=== PATIENT | male | born 1995 | race American Indian/Alaskan Native ===

== ENCOUNTER 2018-03-23 20:05 | Emergency (ER) | payer SELFPAY ==
[2018-03-23 20:14] VITALS: RESP 16; TEMP 98.8
--- NOTE | 2018-03-23 20:21 | ED PDOC ---
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 Patient reports he had unprotected sex with a number of females last week. Patient denies any fever, chills, abdominal pain, constipation, emesis, hematuria, dysuria, penile discharge, penile lesions, or any other complaints at this time. No PMD Past Medical History - Provider Review Nursing Documentation Reviewed: Yes - Infectious Disease Hx of Infectious Diseases: None - Cardiac Hx Cardiac Disorders: No - Pulmonary Hx Respiratory Disorders: No - Neurological Hx Neurological Disorder: No - HEENT Hx HEENT Disorder: No - Renal Hx Renal Disorder: No - Endocrine/Metabolic Hx Endocrine Disorders: No - Hematological/Oncological Hx Blood Disorders: No - Integumentary Hx Dermatological Disorder: No - Musculoskeletal/Rheumatological Hx Musculoskeletal Disorders: No - Gastrointestinal Hx Gastrointestinal Disorders: No - Genitourinary/Gynecological Hx Genitourinary Disorders: No - Psychiatric Hx Psychophysiologic Disorder: No Hx Substance Use: No Family/Social History - Physician Review Nursing Documentation Reviewed: Yes Family/Social History: No Known Family HX Smoking Status: Never Smoked Hx Alcohol Use: No Hx Substance Use: No Allergies/Home Meds Allergies/Adverse Reactions: Allergies No Known Allergies Allergy (Verified 03/23/18 20:12) Home Medications: Home Meds Medication Instructions Recorded Confirmed RX: No Known Home Med 03/23/18 03/23/18 Review of Systems - Physician Review All systems were reviewed & negative as marked: Yes - Review of Systems Constitutional: absent: Fevers, Night Sweats Gastrointestinal: absent: Abdominal Pain, Constipation, Vomiting Genitourinary Male: absent: Dysuria, Hematuria, Other (no penile discharge/lesions) Physical Exam Vital Signs Reviewed: Yes Vital Signs Temp Pulse Resp BP Pulse Ox 03/23/18 20:12 98.8 F 68 16 126/72 97 Temperature: Afebrile Blood Pressure: Normal Pulse: Regular Respiratory Rate: Normal Appearance: Positive for: Well-Appearing, Non-Toxic, Comfortable Pain Distress: None Mental Status: Positive for: Alert and Oriented X 3 - Systems Exam Head: Present: Atraumatic, Normocephalic Pupils: Present: PERRL Extroacular Muscles: Present: EOMI Conjunctiva: Present: Normal Mouth: Present: Moist Mucous Membranes Neck: Present: Normal Range of Motion Respiratory/Chest: Present: Clear to Auscultation, Good Air Exchange. No: Respiratory Distress, Accessory Muscle Use Cardiovascular: Present: Regular Rate and Rhythm, Normal S1, S2. No: Murmurs Abdomen: No: Tenderness, Distention, Peritoneal Signs Back: Present: Normal Inspection Upper Extremity: Present: Normal Inspection. No: Cyanosis, Edema Lower Extremity: Present: Normal Inspection. No: Edema Neurological: Present: GCS=15, CN II-XII Intact, Speech Normal Skin: Present: Warm, Dry, Normal Color. No: Rashes Psychiatric: Present: Alert, Oriented x 3, Normal Insight, Normal Concentration Medical Decision Making ED Course and Treatment: 03/23/18 20:40 Impression: 22 year old male with exposure to STD. Differential Diagnoses Include But Are Not Limited To: --STI Plan: -- Rocephin -- Zithromax -- Urinalysis -- GC Chlamydia Urine -- Reassess and disposition Progress Notes: 03/23/18 21:15 Urinalysis shows no evidence of bacteria within urine. Patient has been prophylactically treated with IM Rocephin and PO azithromycin for GC chlamydia with lab specimen submitted. Patient encouraged to incorporate safe sex practices into his lifestyle and to follow up with his PCP or in clinic. Return protocol provided. He is stable for discharge. - Lab Interpretations Lab Results: Lab Results 03/23/18 20:43: C.trachomatis RNA (TMA) Detected H, N.gonorrhoeae RNA (TMA) Not detected 03/23/18 20:43: Urine Color Light yellow, Urine Appearance Clear, Urine pH 6.0, Ur Specific [place] >= 1.030, Urine Protein Negative, Urine Glucose (UA) Negative, Urine Ketones Negative, Urine Blood Negative, Urine Nitrate Negative, Urine Bilirubin Negative, Urine Urobilinogen 0.2, Ur Leukocyte Esterase Small H, Urine RBC Negative, Urine WBC 2 - 5, Ur Epithelial Cells 0 - 2 I have reviewed the lab results: Yes - Scribe Statement The provider has reviewed the documentation as recorded by the Isaac Pryor Provider Scribe Attestation: All medical record entries made by the Mikeiblayne were at my direction and personally dictated by me. I have reviewed the chart and agree that the record accurately reflects my personal performance of the history, physical exam, medical decision making, and the department course for this patient. I have also personally directed, reviewed, and agree with the discharge instructions and disposition. Disposition/Present on Arrival - Present on Arrival Any Indicators Present on Arrival: No History of DVT/PE: No History of Uncontrolled Diabetes: No Urinary Catheter: No History of Decub. Ulcer: No History Surgical Site Infection Following: None - Disposition Have Diagnosis and Disposition been Completed?: Yes Diagnosis: Exposure to STD Disposition: HOME/ ROUTINE Disposition Time: 21:29 Patient Plan: Discharge Condition: STABLE Discharge Instructions (ExitCare): Chlamydia and Gonorrhea, Screening for Sexually Transmitted Infections, Gonorrhea (DC) Print Language: HUNGARIAN Additional Instructions: All medical record entries made by the Scribe were at my direction and personally dictated by me. I have reviewed the chart and agree that the record accurately reflects my personal performance of the history, physical exam, medical decision making, and the department course for this patient. I have also personally directed, reviewed, and agree with the discharge instructions and disposition. Referrals: Katty Yang MD [Medical Doctor] - Follow up with primary [facility] [place]] - Follow up with primary Forms: [employer] (Ukrainian)
[2018-03-23 20:52] LABS: URINE BILIRUBIN NEGATIVE (NEGATIVE); URINE BLOOD NEGATIVE (NEGATIVE); URINE GLUCOSE (UA) NEGATIVE (NEGATIVE); URINE LEUKOCYTE ESTERASE SMALL Leu/uL (NEGATIVE); URINE PROTEIN NEGATIVE mg/dL (<30 mg/dL); URINE UROBILINOGEN 0.2 E.U./dL (<1 E.U./dL)
[2018-03-23 20:53] LABS: URINE APPEARANCE CLEAR (CLEAR); URINE COLOR LIGHT YELLOW (YELLOW)
[2018-03-23 21:07] LABS: URINE EPITHELIAL CELLS 0 - 2 /hpf (0-5); URINE RBC NEGATIVE /hpf (0-2)
[2018-03-23] MEDS ORDERED: cefTRIAXone (Rocephin) 250 mg Inj IM STA (21:12)
[2018-03-23] MEDS ORDERED: Lidocaine 1% Inj (20ml) ONE (21:30)
[2018-03-23 21:58] VITALS: BP 125/68; PULSE 65; O2SAT 100
== END 2018-03-23 21:36 | disposition home or self-care (01) ==
LOC: ED 20:05
DX: Z20.2 Contact with and (suspected) exposure to infections with a predominantly sexual mode of transmission (principal)
CPT/HCPCS: 81001; 87086; 87491; 87591; 96372; 99284; J0696